=== PATIENT | female | born 2000 | race Caucasian/White ===

== ENCOUNTER 2023-05-25 23:41 | Emergency (ER) | payer OTHER ==
[~2023-05-25] VITALS: Ht 170.2 cm; Wt 70.0 kg
[2023-05-26 00:12] VITALS: BP 127/86; RESP 16; TEMP 98.6; O2SAT 100
[2023-05-26 00:17] VITALS: PULSE 106
[2023-05-26] MEDS ORDERED: ACETAMINOPHEN 325MG TABLET PO ONE (01:15)
[2023-05-26] MEDS ORDERED: BACITRACIN ZINC OINT UDPKT TOP ONE (01:15)
[2023-05-26] MEDS ORDERED: LIDOCAINE HCL/PF 1% 10 MG/ML 5ML VIAL INFIL ONE (01:15)
[2023-05-26] MEDS ORDERED: NAPR-681 PO (02:54)
[2023-05-26] MEDS ORDERED: BO1 TP (02:54)
[2023-05-26 03:00] LABS: CLARITY URINE CLOUDY (CLEAR); COLOR URINE YELLOW (YELLOW); GLUCOSE URINE NEGATIVE (NEGATIVE); KETONES URINE NEGATIVE (NEGATIVE); LEUKOCYTE ESTERASE URINE NEGATIVE (NEGATIVE); NITRITE URINE NEGATIVE (NEGATIVE); OCCULT BLOOD URINE NEGATIVE (NEGATIVE); PH URINE 5.5 (4.5-8.0); PROTEIN URINE NEGATIVE (NEGATIVE); SPECIFIC GRAVITY URINE 1.016 (1.005-1.030); UROBILINOGEN URINE 0.2 E.U./dL (0.2-1.0)
[2023-05-26] MEDS ORDERED: TETANUS, DIPHTHERIA, PERTUSSIS VAC/PF 0.5ML (>10YR OLD) IM ONE (03:00)
[2023-05-26 03:02] LABS: BACTERIA URINE 2+; SQUAMOUS EPITHELIAL CELL URINE 1+ /lpf (RARE/1+)
[2023-05-26 05:22] LABS: RBC URINE 0-2 /hpf (0-2)
[2023-05-26 05:23] LABS: YEAST URINE NONE SEEN
== END 2023-05-26 03:39 | disposition home or self-care (01) ==
LOC: ER 23:41
DX: S81.811A Laceration without foreign body, right lower leg, initial encounter (principal); W01.0XXA Fall on same level from slipping, tripping and stumbling without subsequent striking against object, initial encounter; Y93.89 Activity, other specified; Y92.89 Other specified places as the place of occurrence of the external cause; Y99.8 Other external cause status
CPT/HCPCS: 81025; 99284; 81003; 73590; 90715; 90471; J3490; Z7610 ×2; 96374